=== PATIENT | female | born 1960 | race American Indian/Alaskan Native ===

== ENCOUNTER 2017-07-19 11:28 | Outpatient (CLI) | payer OTHER ==
--- NOTE | 2017-07-19 14:08 | XRay Report ---
LEFT HIP, 2 views: History: Left hip pain. Mild osteoarthritic changes are identified at the left hip. No evidence for fracture, dislocation or bone lesion. 3.5 cm rounded calcified structure in the left side of the pelvis is most consistent with a calcified uterine fibroid. IMPRESSION: Mild osteoarthritic changes.
--- NOTE | 2017-07-19 14:28 | XRay Report ---
CERVICAL SPINE, 3 views: History: Neck pain. Findings: The vertebral bodies, disk spaces, posterior elements and prevertebral soft tissues are unremarkable. The dens is intact. Near bridging anterior osteophytes are identified from C2-C7. No acute fracture or malalignment is identified. Impression: Mild cervical spondylosis. No acute process is noted.
== END 2017-07-19 11:29 | disposition home or self-care (01) ==
LOC: XRAY 11:28
PROVIDERS: ATTEND Internal Medicine
DX: M47.892 Other spondylosis, cervical region (principal); M17.12 Unilateral primary osteoarthritis, left knee; E03.9 Hypothyroidism, unspecified; F41.9 Anxiety disorder, unspecified; I10 Essential (primary) hypertension; R40.0 Somnolence; R68.84 Jaw pain; R26.89 Other abnormalities of gait and mobility
CPT/HCPCS: 72040